=== PATIENT | female | born 1935 | race Caucasian/White ===

== ENCOUNTER 2020-09-22 06:24 | Day surgery (SDC) | payer MEDICARE ==
[~2020-09-22] VITALS: Ht 158 cm; Wt 51.0 kg
[~2020-09-22 06:24] MED LIST: ASPIRIN CHEWABL81 MG PO; CENTRUM ADULTS1 EACH PO; FOLIC ACID1 MG PO; LOPRESSOR25 MG PO; PERCOCET 5-3251 EACH PO; POLY-IRON150 MG PO; ROSUVASTATIN CA10 MG PO; TYLENOL ARTHRI650 MG PO; VITAMIN B125000 MCG PO; VITAMIN D325 MC2 PO
--- NOTE | 2020-09-22 16:26 | NUR ---
PT. TO D/C HOME. DAUGHTER IS TO ASSIST PT AT HOME. 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 PT. REQUESTED [facility]. PT. SIGNED CHOICE FORM. INFORMATION SENT TO [facility].
[2020-09-23 05:38] LABS: BASOPHIL 0.6 % (0-2); EOSINOPHIL 0.8 % (0-7); HCT 27.4 % (37.0-47.0); HGB 9.1 g/dl (12.5-16.0); LYMPHOCYTE 24.2 % (15-48); MCH 31.9 pg (25.0-31.0); MCHC 33.2 g/dL (32.0-36.0); MCV 96.1 fL (78.0-100.0); MONOCYTE 12.8 % (0-12); MPV 10.4 fL (6.0-9.5); NEUTROPHIL 61.2 % (41-80); NRBC 0; PLT 160 K/uL (150-400); RBC 2.85 M/uL (4.20-5.40); RDW 13.5 % (11.5-14.0); WBC 5.3 K/uL (4.0-10.5)
[2020-09-23 07:15] LABS: CREATININE 0.77 mg/dL (0.51-0.95); POTASSIUM 4.3 mmol/L (3.5-5.1)
[2020-09-23] MEDS ORDERED: NORCO 5-325 TA1 EACH PO (08:49)
[2020-09-23] MEDS ORDERED: XARELTO10 MG PO (08:49)
--- NOTE | 2020-09-23 09:43 | NUR ---
FILIPPO TO [employer] [facility]. SPOKE WITH EMANI. SHE ADVISED THAT THE COPAY FOR HER LUISATO IS $4.00.
[2020-09-23] MEDS ORDERED: ZOFRAN4 M1 PO (10:20)
== END 2020-09-23 13:30 | disposition home health service (06) ==
LOC: FAS 06:24 → FMS 12:22 → FAS 09-23 13:30
PROVIDERS: Legal Medicine
DX: M17.12 Unilateral primary osteoarthritis, left knee (principal); M21.062 Valgus deformity, not elsewhere classified, left knee; I25.10 Atherosclerotic heart disease of native coronary artery without angina pectoris; E78.5 Hyperlipidemia, unspecified; F03.90 Unspecified dementia, unspecified severity, without behavioral disturbance, psychotic disturbance, mood disturbance, and anxiety; I25.2 Old myocardial infarction; Z95.0 Presence of cardiac pacemaker; Z86.73 Personal history of transient ischemic attack (TIA), and cerebral infarction without residual deficits; Z79.899 Other long term (current) drug therapy
CPT/HCPCS: 36415; 73560; 80048; 85025; 86850; 86900; 86901; 94010; 94760; 94762; 97110; 97162; 97530-GP; C1713; C1776; J0171; J0697; J1885; J2250; J2270; J2405; J2795; J3010; J3490; J7120